=== PATIENT | female | born 2000 | race Caucasian/White ===

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

== ENCOUNTER 2022-02-13 13:39 | Outpatient (REF) | payer MEDICAID, SELFPAY | END 2022-02-13 13:40 | disposition home or self-care (01) | LOC: HO.MDS 13:39 | PROVIDERS: PCP Nurse Practitioner; Visit Provider Internal Medicine | DX: D50.9 Iron deficiency anemia, unspecified (principal) | CPT/HCPCS: 96365; J1756 ==

== ENCOUNTER 2022-02-20 13:15 | Outpatient (REF) | payer MEDICAID, SELFPAY | END 2022-02-20 13:16 | disposition home or self-care (01) | LOC: HO.MDS 13:15 | PROVIDERS: Visit Provider Internal Medicine | DX: D50.9 Iron deficiency anemia, unspecified (principal) | CPT/HCPCS: 96365; J1756 ==

== ENCOUNTER 2022-02-28 13:56 | Outpatient (REF) | payer MEDICAID, SELFPAY | END 2022-02-28 13:57 | disposition home or self-care (01) | LOC: HO.MDS 13:56 | PROVIDERS: Visit Provider Internal Medicine | DX: D50.9 Iron deficiency anemia, unspecified (principal) | CPT/HCPCS: 96365; J1756 ==

== ENCOUNTER 2022-03-07 12:39 | Outpatient (REF) | payer MEDICAID, SELFPAY | END 2022-03-07 12:40 | disposition home or self-care (01) | LOC: HO.MDS 12:39 | PROVIDERS: Visit Provider Internal Medicine | DX: D50.9 Iron deficiency anemia, unspecified (principal) | CPT/HCPCS: 96365; J1756 ==

== ENCOUNTER 2022-10-03 13:53 | Outpatient (REF) | payer MEDICAID, SELFPAY | END 2022-10-03 13:54 | disposition home or self-care (01) | LOC: HO.MDS 13:53 | PROVIDERS: PCP Nurse Practitioner; Visit Provider Internal Medicine | DX: D50.9 Iron deficiency anemia, unspecified (principal) | CPT/HCPCS: 96365; J1756 ==

== ENCOUNTER 2022-10-10 14:19 | Outpatient (REF) | payer MEDICAID, SELFPAY | END 2022-10-10 14:20 | disposition home or self-care (01) | LOC: HO.MDS 14:19 | PROVIDERS: Visit Provider Internal Medicine | DX: D50.9 Iron deficiency anemia, unspecified (principal) | CPT/HCPCS: 96365; J1756 ==

== ENCOUNTER 2022-10-17 12:36 | Outpatient (REF) | payer MEDICAID, SELFPAY | END 2022-10-17 12:37 | disposition home or self-care (01) | LOC: HO.MDS 12:36 | PROVIDERS: Visit Provider Internal Medicine | DX: D50.9 Iron deficiency anemia, unspecified (principal) | CPT/HCPCS: 96365; J1756 ==

== ENCOUNTER 2022-10-22 12:42 | Outpatient (REF) | payer MEDICAID, SELFPAY | END 2022-10-22 12:43 | disposition home or self-care (01) | LOC: HO.MDS 12:42 | PROVIDERS: Visit Provider Internal Medicine | DX: D50.9 Iron deficiency anemia, unspecified (principal) | CPT/HCPCS: 96365; J1756 ==

== ENCOUNTER 2022-10-30 12:46 | Outpatient (REF) | payer MEDICAID, SELFPAY | END 2022-10-30 12:47 | disposition home or self-care (01) | LOC: HO.MDS 12:46 | PROVIDERS: Visit Provider Internal Medicine | DX: D50.9 Iron deficiency anemia, unspecified (principal) | CPT/HCPCS: 96365; J1756 ==

== ENCOUNTER 2023-03-20 12:19 | Emergency (ER) | payer OTHER, MEDICAID, SELFPAY ==
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
[2023-03-20 12:34] VITALS: BP 155/85; PULSE 78; O2SAT 98
[2023-03-20 12:35] VITALS: BP 148/85; PULSE 87; RESP 20; TEMP 37.2; O2SAT 98; BMI 56.6
--- OUTSIDE RECORDS SUMMARY | 2023-03-20 12:48 | XMS_ITS | Continuity of Care Document ---
Author Name Unknown Organization [facility] ter Address [address] [place] [id number]- Care Team Providers Care Border Police Name Role Phone Arian MENDEZ, Mayank Fuller Primary Care Physician [place] [facility] [place] - 12/23/[address] [address]- [facility] Attending Physician: Katelynn Smith MD Admitting Physician: Katelynn Smith MD Allergies, Adverse Reactions, Alerts Substance Reaction Severity Status NKA Active Medications Cholecalciferol By Mouth, 0 Refills, Maintenance, 10/15/14 12:08:14 Start Date: 10/15/14 Status: Ordered Flovent 110 mcg Inhaler HFA 110 mcg, Inhalation, Maintenance, 04/19/14 8:30:26 Start Date: 04/19/14 Status: Ordered metFORMIN 750 mg oral tablet, extended release 2 tablet = 1,500 mg, By Mouth, Daily, # 60 tablet, 11 Refills, Maintenance, 01/26/19 9:48:22 EDT, ER Tablet Start Date: 01/26/19 Stop Date: 01/21/20 Status: Ordered Problem List Condition Effective Dates Status Health Status Inform ant Asthma(Confirmed) Active Obesity(Confirmed) Active Social History Social History Type Response Smoking Status Never smoker; Tobacc o user in household: No entered on: 05/03/15 Sex
--- OUTSIDE RECORDS SUMMARY | 2023-03-20 12:48 | XMS_ITS | Continuity of Care Document ---
Author Name Unknown Organization [facility] ter Address [address] [place] [id number]- Care Team Providers Care Clinical Informatics Strategist Name Role Phone Arian MENDEZ, Mayank Fuller Primary Care Physician Encounter [facility] [place] Date(s): 07/24/19 - 07/24/[address] [address]- [facility] Attending Physician: Katelynn Smith MD Allergies, Adverse Reactions, [...]
--- OUTSIDE RECORDS SUMMARY | 2023-03-20 12:48 | XMS_ITS | Continuity of Care Document ---
Author Name Unknown Organization [facility] ter Address [address] [place] [id number]- Care Team Providers Care Wax Pattern Repairer Name Role Phone Arian MENDEZ, Mayank Fuller Primary Care Physician [place] [facility] [place] - 12/23/[address] [address]- [facility] Attending Physician: Katelynn Smith MD Allergies, Adverse [...]
--- OUTSIDE RECORDS SUMMARY | 2023-03-20 12:48 | XMS_ITS | Continuity of Care Document ---
Author Name Unknown Organization [facility] ter Address [address] [place] [id number]- Care Team Providers Care Bolt Machine Operator Name Role Phone Jules GEORGES, Josiane Beltran Primary Care Physician Encounter [facility] Date(s): 01/23/22 - 01/23/[address] [address] Discharge Disposition: A-D/C Home Attending Physician: Katelynn Smith MD Admitting Physician: Katelynn Smith MD Referring Physician: Katelynn Smith MD Allergies, Adverse Reactions, Alerts Substance Reaction Severity Status Kiwi tongue swelling Active Medications Cholecalciferol By Mouth, 0 Refills, Maintenance, 10/15/14 12:08:14 Start Date: 10/15/14 Status: Ordered ferrous sulfate 325 mg oral tablet 1 tablet = 325 mg, By Mouth, 3 times a day, # 270 tablet, 0 Refills, Maintenance, 01/22/22 11:40:00EDT, Tablet, Partial fill upon patient request if the prescription is for a schedule II opioid drug. Start Date: 01/22/22 Status: Ordered OxyCODONE IR Tablet 5 mg, Tablet, By Mouth, Every 4 hours, in PACU ONLY, if patient can tolerate PO, PRN for Pain , Mild, Routine, 01/23/22 14:04:00 EDT Start Date: 01/23/22 Stop Date: 01/23/22 Status: Discontinued Problem List Condition Effective Dates Status Health Status Inform ant Asthma(Confirmed) Active Obesity(Confirmed) Active Severe obesity(Confirmed) Active Vital Signs Most recent to oldest [Reference Range]: 1 2 3 Height 155 cm (01/23/22 7:51 AM) 155 cm (01/22/22 11:27 AM) Weight 119.9 kg (01/23/22 7:51 AM) 115.90 kg (01/22/22 11:27 AM) Oxygen Saturation [94-100 %] 99 % (01/23/22 1:45 PM) 99 % (01/23/22 1:30 PM) 100 % (01/23/22 1:15 PM) Pulse Rate [55-90 bpm] 85 bpm (01/23/22 7:51 AM) Body Mass Index [18.5-24.99] 49.91 *>HHI* (01/23/22 7:51 AM) 48.24 *>HHI* (01/22/22 11:27 AM) Blood Pressure [90-138/55-84 mm Hg] 117/49mm Hg (01/23/22 1:45 PM) 115/49mm Hg (01/23/22 1:30 PM) 114/64mm Hg (01/23/22 1:15 PM) Respiratory Rate [16-30 br/min] 18 br/min (01/23/22 1:45 PM) 18 br/min (01/23/22 1:42 PM) 15 br/min *L* (01/23/22 1:30 PM) Temperature [96.8-100.4 DegF] 97 DegF (01/23/22 1:30 PM) 97.5 DegF (01/23/22 12:45 PM) 97.6 DegF (01/23/22 7:51 AM) Liters per Minute 5 L/min (01/23/22 12:45 PM) Mode of Delivery (Oxygen) Room air (01/23/22 1:30 PM) Blow by (01/23/22 1:15 PM) Simple face mask (01/23/22 12:45 PM) Blood pressure sites Arm, right (01/23/22 12:45 PM) Arm, left (01/23/22 7:51 AM) Temperature Route Temporal (01/23/22 1:30 PM) Temporal (01/23/22 12:45 PM) Temporal (01/23/22 7:51 AM) Dry Weight 119.9 kg (01/23/22 7:51 AM) Weight Obtained Via Standing scale (01/23/22 7:51 AM) Dry Weight Obtained Via Standing scale (01/23/22 7:51 AM) Social History Social History Type Response Smoking Status Never smoker; Tobacc o user in household: No entered on: 05/03/15 Sex
[2023-03-20] MEDS: Cyclobenzaprine HCl 5 MG TABLET PO (12:52)
== END 2023-03-20 12:57 | disposition home or self-care (01) ==
PROVIDERS: Emergency Provider Emergency Medicine
DX: S19.9XXA Unspecified injury of neck, initial encounter (principal); M54.50 Low back pain, unspecified; R51.9 Headache, unspecified; V43.52XA Car driver injured in collision with other type car in traffic accident, initial encounter; Y93.9 Activity, unspecified; Y92.410 Unspecified street and highway as the place of occurrence of the external cause; Y99.9 Unspecified external cause status
CPT/HCPCS: 99283

== ENCOUNTER 2023-10-24 18:36 | Outpatient (REF) | payer OTHER, MEDICAID, SELFPAY | END 2023-10-24 18:37 | disposition home or self-care (01) | LOC: HO.HHCLNP 18:36 | PROVIDERS: Visit Provider Advanced Practice Midwife | DX: Z12.4 Encounter for screening for malignant neoplasm of cervix (principal) | CPT/HCPCS: 88142 ==

== ENCOUNTER 2023-11-26 11:36 | Outpatient (REF) | payer OTHER, MEDICAID, SELFPAY ==
[2023-11-26 13:40] LABS: Hematocrit 34.6 % (37.0-47.0); Hemoglobin 10.7 g/dl (12.0-16.0); Mean Corpuscular HGB Conc 30.9 g/dl (31.0-35.0); Mean Corpuscular Hemoglobin 24.2 pg (27.0-33.0); Mean Corpuscular Volume 78.3 fL (80.0-98.0); Mean Platelet Volume 9.9 fL (9.4-12.3); Platelet Count 389 X10*3/uL (160-400); Red Blood Count 4.42 X10*6/uL (4.20-5.50); White Blood Count 7.6 X10*3/uL (4.8-10.8)
[2023-11-26 13:54] LABS: Alanine Aminotransferase 12 U/L (0-31); Albumin Level 3.7 g/dL (3.5-5.0); Alkaline Phosphatase 91 U/L (39-117); Anion Gap 15 (12-20); Aspartate Amino Transferase 16 U/L (5-31); Bilirubin Total 0.4 mg/dL (0.0-1.0); Blood Urea Nitrogen 9 mg/dL (9-16); Calcium 9.6 mg/dL (8.4-10.2); Carbon Dioxide 23 mmol/L (22-29); Chloride 107 mmol/L (96-108); Cholesterol 116 mg/dL (<200); Estimated Glomerular Filt Rate > 60; Glucose Random 97 mg/dL (60-115); HDL Cholesterol 35 mg/dL (>40); Iron 79 mcg/dL (30-160); LDL Cholesterol Calculated 69 mg/dL (<100); Percent Iron Saturation 29 % (15-50); Potassium 3.8 mmol/L (3.3-5.1); Sodium 141 mmol/L (135-145); Total Iron Binding Capacity 269 mcg/dL (228-428); Total Protein 7.2 g/dL (6.5-8.0); Triglycerides 61 mg/dL (<150); Unsaturated Iron Binding 190 ug/dL
[2023-11-26 14:04] LABS: Estimated Average Glucose 111 mg/dL; Hemoglobin A1c % 5.5 % (<6.0)
[2023-11-26 14:13] LABS: Ferritin 70 ng/mL (10-122); TSH reflex Free T4 < 0.01 uIU/mL (0.32-4.0); Vitamin D 25-OH Total 17.5 ng/mL (>30)
[2023-11-26 15:03] LABS: Free T4 (Free Thyroxine) 1.78 ng/dL (0.71-1.85)
[2023-11-26 16:03] LABS: CT PCR NOT DETECTED (Not Detect.); NG PCR NOT DETECTED (Not Detect.)
[2023-11-27 03:24] LABS: Syphilis Screen Nonreactive (Nonreactive)
[2023-11-27 04:04] LABS: HBS Num1 1.69 mIU/mL (0-7.99); HBc Num1 0.08 S/CO (0.00-0.79); HBsAGNum1 0.32 S/CO (0.00-0.99); HIV AB/AG Nonreactive (Nonreactive); HIV Num 1 0.06 S/CO (0.00-0.99); Hepatitis B Core Antibody Nonreactive (Nonreactive); Hepatitis B Surface Antigen Negative (Negative); ~HepC Num1 0.08 S/CO (0.00-0.79); ~Hepatitis B Surface Antibody NONREACTIVE (Nonreactive); ~Hepatitis C Antibody Nonreactive (Nonreactive)
[2023-11-27 16:12] LABS: Folate 7.2 ng/mL (> or = 4.0); Vitamin B12 343 pg/mL (200-900)
[2023-11-29 13:13] LABS: Hematocrit 34.7 % (35.0-45.0); Hemoglobin 10.7 g/dL (11.7-15.5); MCH 24.4 pg (27.0-33.0); MCV 79.2 fL (80.0-100.0); RBC 4.38 Million/uL (3.80-5.10)
== END 2023-11-26 11:37 | disposition home or self-care (01) ==
LOC: HO.HHCL 11:36
PROVIDERS: Visit Provider Student in an Organized Health Care Education/Training Program
DX: Z00.00 Encounter for general adult medical examination without abnormal findings (principal); Z13.6 Encounter for screening for cardiovascular disorders; Z11.4 Encounter for screening for human immunodeficiency virus [HIV]; D50.9 Iron deficiency anemia, unspecified
CPT/HCPCS: 0353U; 36415; 80053; 80061; 82306; 82607; 82728; 82746; 83020; 83036; 83540; 84439; 84443; 85014; 85018; 85027; 85041; 86704; 86706; 86780; 86803; 87340; 87389

== ENCOUNTER 2024-01-28 14:51 | Emergency (ER) | payer OTHER, SELFPAY ==
--- NOTE | ~2024-01-28 | US_ITS ---
EXAMINATION: US ABDOMEN LIMITED CLINICAL INFORMATION: Right upper back pain. Worse after eating. COMPARISON: Ultrasound abdomen May 08, 2019 TECHNIQUE: Real-time imaging of the right upper quadrant abdominal viscera.: Doppler exam used. FINDINGS: PANCREAS: Normal. LIVER: Normal. The liver is normal in size. The liver contour is normal. Parenchymal echogenicity is normal. No focal hepatic lesion. There is no intrahepatic biliary duct dilatation seen. GALLBLADDER: Numerous gallstones in the gallbladder. Gallbladder is contracted. No gallbladder wall thickening or pericholecystic fluid. Negative ultrasound Juares's sign. COMMON BILE DUCT: Normal in caliber measuring 0.3 cm in diameter. RIGHT KIDNEY: Normal. No hydronephrosis. No renal calculi or focal parenchymal lesions. The kidney measures 12.7 cm in maximum dimension. FREE FLUID: None. US/US abdomen limited IMPRESSION: Cholelithiasis. No acute change of gallbladder wall. No bile duct dilatation.
--- NOTE | ~2024-01-28 | XR_ITS ---
EXAMINATION: XR THORACOLUMBAR SPINE CLINICAL INFORMATION: Atraumatic back pain COMPARISON: Thoracic spine x-rays of 10/12/2013 TECHNIQUE: AP and lateral views of the thoracic spine as well as swimmers view were obtained. FINDINGS: Vertebral alignment is maintained. Minimal anterior wedge compression at T11-T12 is a stable finding and likely chronic stress related. Minimal anterior endplate hypertrophic spurring is noted in the lower thoracic spine. Intervertebral disc spaces are preserved. No evidence of suspicious lytic or blastic osseous lesions. Paraspinous soft tissues are unremarkable. Postsurgical changes are noted in the left upper abdominal quadrant likely of steal gastrectomy, recommend correlation with surgical history. XR/XR thoracic spine 2V IMPRESSION: Mild degenerative changes in the lower thoracic spine. No evidence of acute compression fracture or suspicious osseous lesion.
[2024-01-28 15:21] VITALS: BP 155/87; PULSE 100; RESP 18; TEMP 36.3; O2SAT 99; BMI 50.1
--- NOTE | 2024-01-28 15:23 | ED_ITS ---
HPI - Back Pain/Injury General Chief Complaint: Back Pain/Injury Stated Complaint: Upper back pain Time Seen by Provider: 01/28/24 16:24 Source: patient Mode of arrival: ambulatory Limitations: no limitations History of Present Illness ED Provider: cheyenne DOUGHERTY Narrative: Patient is a 23-year-old female with history of anemia, asthma, HTN, NIDDM, sleep apnea, sleeve gastrectomy, followed by bariatric surgery presenting to the emergency department with complaint of left thoracic back pain which worsened after eating lunch today. States the pain has been present for several days but seemed to worsen after eating lunch with her co-workers today. Denies abdominal pain, nausea, vomiting, diarrhea or constipation. Reports history of chronic upper back pain for which she has previously been prescribed muscle relaxers, topical lidocaine patches but states she is not currently using these medications. States she was referred to PT but has not gone yet. MD elicited complaint: back pain Pertinent past history: prior back pain Onset (ago): day(s) Timing: progressively worsening Severity: moderate Similar Symptoms Previously: Yes Quality: aching and spasming Location: left upper back Radiation: none Exacerbating factors: movement and other (palpation) Related Data Home Medications ?Medication ?Instructions ?Recorded ?Confirmed albuterol sulfate 90 mcg/actuation 1 inh inhalation DIRECTED PRN 08/26/20 03/20/22 aerosol inhaler (Ventolin HFA) Wheezing Miralax 17 g PO DIRECTED 12/12/21 03/20/22 Nexplanon 68 mg IM control 12/12/21 naproxen 250 mg PO Q4-8H pain 12/12/21 03/20/22 omeprazole 20 mg PO DAILY gerd 12/12/21 03/20/22 cholecalciferol (vitamin D3) 50 1 tab PO DAILY 12/13/21 03/20/22 mcg (2,000 unit) tablet ferrous sulfate 325 mg (65 mg 1 tab PO Q OTHER DAY 12/13/21 03/20/22 iron) tablet (FeroSul) Previous Rx's ?Medication ?Instructions ?Recorded cyclobenzaprine 5 mg tablet 5 mg PO TID PRN muscle spasm 7 03/20/23 days #21 tabs cyclobenzaprine 5 mg tablet 5 mg PO TID PRN muscle spasm #10 01/28/24 tabs lidocaine 5 % topical patch 1 patch topical DAILY #15 ea 01/28/24 Allergies Allergy/AdvReac Type Severity Reaction Status Date / Time kiwi Allergy Intermediate inflammation Verified 01/28/24 15:22 of taste buds Review of Systems 2 Review of Systems: As per HPI. Yes all other systems are reviewed and are negative Constitutional: Constitutional: Reports as per HPI [facility] Past Medical History Medical History Asthma Non-insulin dependent diabetes mellitus Lower extremity edema Back pain Steatosis, liver Hypertension Pre-diabetes Sleep apnea Asthma Anemia Abnormal electrocardiogram [ECG] [EKG] Surgical History Gastric bypass status for obesity History of sleeve gastrectomy No history of previous surgery Morbid obesity Family History Family History Father High blood pressure Anemia Hx of diabetes mellitus Gout Arthritis Mother High blood pressure Hx of diabetes mellitus Arthritis Social History Social History Household Members: Family Housing: Apartment Are you a primary long term acute care registered nurse to a significant other at home: Yes Do you presently have visiting nurse or other home services: No Comment: sleeping Patient Tobacco Use Status: Never used Tobacco Advance Directives: No Advance Directives Information Provided: No Do you have a plan to hurt others: No Plan service: No Current occupational status: employed Physical Exam 2 Vital Signs: Vital Signs: Last Vital Signs Temp 97.6 F 01/28/24 16:24 Pulse 98 01/28/24 16:24 Resp 20 01/28/24 16:24 BP 157/85 H 01/28/24 16:24 Pulse Ox 99 01/28/24 16:24 O2 Del Method Room Air 01/28/24 16:24 BMI result Body Mass Index 50.1 Vital signs have been reviewed and appear to be correct. Blood pressure elevated. Heart rate normal. Respiratory rate normal. Temperature normal. Oxygen saturation normal. Const: General: cooperative and no acute distress O rientation/consciousness: oriented to person, oriented to place, oriented to time and patient oriented x3 Limitations: no limitations HEENT: Head: Yes normocephalic and Yes atraumatic Ears: external ears normal General nose exam: Normal external nose present Face and sinus: Yes face symmetric Mouth: oropharynx normal and moist mucous membranes T hroat: Yes uvula midline Eyes: Pupils: Equal, round and reactive pupils present Neck: Neck: Yes normal visual inspection and Yes supple Resp: Effort & Inspection: normal respiratory effort and able to speak in complete sentences Auscultation: clear to auscultation bilaterally Cardio: Rate: regular rate Rhythm: regular rhythm Heart sounds: S1 normal heart sound present and S2 normal heart sound present GI: Palpation (GI): Soft to palpation and nontender Auscultation: n ormoactive bowel sounds : General: Yes no CVA tenderness Back/Spine/Pelvis: Back: no CVA tenderness Thoracic/Lumbar Spine: thoracic and lumbar spine normal to inspection, thoraco-lumbar ROM normal, pain with thoraco-lumbar ROM, paraspinal muscle tenderness on the left in the upper thoracic, No thoracic spinal tenderness and No lumbar spinal tenderness Skin: General skin exam: elasticity normal and turgor normal Neuro: General: oriented to person, oriented to place, oriented to time, patient oriented x3, moves all extremities, no focal motor deficits and CN's II- XI intact bilaterally Cranial nerves: Yes Equal, round and reactive pupils present Cognition (Neuro): normal cognition Extrem: General: Yes full ROM, Yes no pedal edema and Yes no calf tenderness Psych: Mental Status: mental status grossly normal Affect: normal affect Thought process: Normal thought process present Course Course Course Narrative: This is a Rapid Medical Examination (RME) performed by Gabriela Kim PA-C in triage. Full HPI, ROS, assessment and treatment plan per primary provider in the Main ED. 23 yo female hx of asthma, DM here for eval of mid-upper back pain worse after eating. exacerbated last night after eating tacos. denies abdominal pain, NV. patient reports hx of upper back pain. previously completed PT for this with improvement. + No midline spinous tenderness or step off deformity. No paraspinal muscle tenderness. obese abd soft, ND/NT. Plan: labs, US, xr Medical Decision Making Medical Decision Making MDM Narrative: Patient is a 23-year-old female with history of anemia, asthma, HTN, NIDDM, sleep apnea, sleeve gastrectomy, followed by bariatric surgery presenting to the emergency department with complaint of left thoracic back pain which worsened after eating lunch today. On exam patient is awake, A+Ox3, VS WNL, afebrile, normal neurological exam without focal deficits, physical exam findings as above. Given reported symptoms and physical exam findings, initial differential includes muscle strain/spasm, trapped gas, GERD. Labs notable for chronic anemia otherwise unremarkable. Thoracic x-ray notable for mild degenerative changes, no acute fracture or suspicious lesions. Ultrasound notable for cholelithiasis without evidence of cholecystitis. My interpretation is in agreement with the radiologist's interpretation. No abdominal tenderness on physical exam and pain is reproducible with palpation, feel patient's symptoms are likely an acute exacerbation of chronic upper back pain. Discussed with patient that gas after eating may also be contributing to her pain and recommend that she try [id number] simethicone to see if this changes her symptoms. Will send prescriptions for cyclobenzaprine and topical lidocaine patches. Advised her to schedule her physical therapy which has been ordered. Return precautions discussed at bedside. Follow-up with PCP. Patient verbalized understanding of and agreement with plan. Differential Diagnosis Differential Diagnoses: The differential diagnosis associated with the presentation includes As per [facility] Admission/Observation Consideration of admission/observation: Escalation of care including admission/observation considered Patient would have been admitted to the hospital had their work up had any findings where hospital admission was appropriate and their clinical presentation warranted hospital admission. Lab Data [facility] Lab Attestation statement: I reviewed the patient's lab results. as per [facility] 01/28/24 17:13 01/28/24 17:13 Labs: Lab Results 01/28/24 Range/Units 17:13 WBC 9.9 (4.8-10.8) X10*3/uL RBC 3.98 L (4.20-5.50) X10*6/uL Hgb 9.9 L (12.0-16.0) g/dl Hct 30.7 L (37.0-47.0) % MCV 77.1 L (80.0-98.0) fL MCH 24.9 L (27.0-33.0) pg MCHC 32.2 (31.0-35.0) g/dl RDW 13.8 (11.0-16.0) % Plt Count 351 (160-400) X10*3/uL MPV 9.1 L (9.4-12.3) fL Immature Gran % (Auto) 0.2 (0.0-0.4) % Neut % (Auto) 68.0 (45-73) % Lymph % (Auto) 23.8 (20-40) % Davie % (Auto) 6.4 (2-11) % Eos % (Auto) 1.4 (0-4) % Baso % (Auto) 0.2 (0-2) % Lymph # (Auto) 2.4 (1.2-4.9) X10*3/uL Davie # (Auto) 0.6 (0.1-1.2) X10*3/uL Eos # (Auto) 0.1 (0.0-0.4) X10*3/uL Baso # (Auto) 0.0 (0.0-0.2) X10*3/uL Abs Immat Gran (auto) 0.02 (0.00-0.03) X10*3/uL Absolute Neuts (auto) 6.7 (2.0-8.3) x10*3/uL Absolute Nucleated RBC 0.000 (0.0-0.012) X10*3/uL Nucleated RBC % (auto) 0.0 (0.0-0.2) /100WBC Sodium 142 (135-145) mmol/L Potassium 4.3 (3.3-5.1) mmol/L Chloride 109 H (96-108) mmol/L Carbon Dioxide 22 (22-29) mmol/L Anion Gap 15 (12-20) BUN 9 (9-16) mg/dL Creatinine 0.56 (0.5-1.4) mg/dL Estim Creat Clear Calc 191.0 Estimated GFR > 60 Random Glucose 99 (60-115) mg/dL Calcium 9.0 D (8.4-10.2) mg/dL Magnesium 1.8 (1.6-2.6) mg/dL Total Bilirubin 0.1 (0.0-1.0) mg/dL AST 11 (5-31) U/L ALT 7 (0-31) U/L Alkaline Phosphatase 87 (39-117) U/L Total Protein 6.7 (6.5-8.0) g/dL Albumin 3.5 (3.5-5.0) g/dL Lipase 13 (8-78) U/L Independent Interpretation I performed an independent interpretation of an: Plain X-Ray and Ultrasound Interpretation: Thoracic x-ray notable for mild degenerative changes, no acute fracture or suspicious lesions. Ultrasound notable for cholelithiasis without evidence of cholecystitis. Radiology Impression Discussion of test interpretation with radiology: I have reviewed the radiologist's reading. Radiologist Impression: US/US abdomen limited IMPRESSION: Cholelithiasis. No acute change of gallbladder wall. No bile duct dilatation. XR/XR thoracic spine 2V IMPRESSION: Mild degenerative changes in the lower thoracic spine. No evidence of acute compression fracture or suspicious osseous lesion. External Record Review External record reviewed: Inpatient record, Office record and Outpatient record Prescription Management I considered prescription management with: Pain Medication and Other Discharge Plan Discharge Clinical Impression: Strain of thoracic back region Patient Disposition: Home, Self-Care Instructions: Muscle Strain (DC), Thoracic Back Strain (ED) Additional Instructions: You were evaluated in the emergency department today for back pain. Your evaluation did not show signs of medical conditions requiring emergent intervention at this time. You have been prescribed a muscle relaxer which you may take every 8 hours as needed for spasms. You have been prescribed 5% topical lidocaine patches which you can wear for up to 12 hours in a 24 hour period. Do not apply heat directly over the patches. It is also possible that your pain is being worsened by trapped gas after eating. You can try over the counter simethicone to see if this decreases your pain after eating. Please schedule an appointment for follow-up with your primary care physician this week for further evaluation of your symptoms. Return to the emergency department if you experience worsening back pain, difficulty walking, fevers, numbness, tingling, incontinence, groin numbness or tingling, or any other concerning symptoms. Prescriptions: New cyclobenzaprine 5 mg tablet 5 mg PO TID PRN (Reason: muscle spasm) Qty: 10 0RF lidocaine 5 % adhesive patch,medicated 1 patch topical DAILY Qty: 15 0RF Rx Instructions: leave on most painful area for up to 12 hrs No Action albuterol sulfate [Ventolin HFA] 90 mcg/actuation Hfa Aerosol Inhaler 1 inh INHALATION DIRECTED PRN (Reason: Wheezing) Miralax 17 g PO DIRECTED Nexplanon 68 mg IM naproxen 250 mg PO Q4-8H omeprazole 20 mg PO DAILY ferrous sulfate [FeroSul] 325 mg (65 mg iron) tablet 1 tab PO Q OTHER DAY cholecalciferol (vitamin D3) 50 mcg (2,000 unit) tablet 1 tab PO DAILY cyclobenzaprine 5 mg tablet 5 mg PO TID PRN (Reason: muscle spasm) 7 Days Qty: 21 0RF Print Language: Italian
[2024-01-28 16:24] VITALS: BP 157/85; PULSE 98; RESP 20; TEMP 36.4; O2SAT 99
[2024-01-28 17:18] LABS: MANUAL DIFF FLAG NO
[2024-01-28 17:21] LABS: Basophils Percent Auto 0.2 % (0-2); Eosinophils Absolute Auto 0.1 X10*3/uL (0.0-0.4); Eosinophils Percent Auto 1.4 % (0-4); Hematocrit 30.7 % (37.0-47.0); Hemoglobin 9.9 g/dl (12.0-16.0); Imm Gran Abs Auto 0.02 X10*3/uL (0.00-0.03); Imm Gran Pct Auto 0.2 % (0.0-0.4); Lymphocytes Absolute Auto 2.4 X10*3/uL (1.2-4.9); Lymphocytes Percent Auto 23.8 % (20-40); Mean Corpuscular HGB Conc 32.2 g/dl (31.0-35.0); Mean Corpuscular Hemoglobin 24.9 pg (27.0-33.0); Mean Corpuscular Volume 77.1 fL (80.0-98.0); Mean Platelet Volume 9.1 fL (9.4-12.3); Monocytes Absolute Auto 0.6 X10*3/uL (0.1-1.2); Monocytes Percent Auto 6.4 % (2-11); Neutrophils Absolute Auto 6.7 x10*3/uL (2.0-8.3); Platelet Count 351 X10*3/uL (160-400); Red Blood Count 3.98 X10*6/uL (4.20-5.50); Red Cell Distribution Width 13.8 % (11.0-16.0); White Blood Count 9.9 X10*3/uL (4.8-10.8)
[2024-01-28 17:35] LABS: Alanine Aminotransferase 7 U/L (0-31); Albumin Level 3.5 g/dL (3.5-5.0); Alkaline Phosphatase 87 U/L (39-117); Anion Gap 15 (12-20); Aspartate Amino Transferase 11 U/L (5-31); Bilirubin Total 0.1 mg/dL (0.0-1.0); Blood Urea Nitrogen 9 mg/dL (9-16); Carbon Dioxide 22 mmol/L (22-29); Chloride 109 mmol/L (96-108); Estimated Glomerular Filt Rate > 60; Glucose Random 99 mg/dL (60-115); Lipase 13 U/L (8-78); Magnesium 1.8 mg/dL (1.6-2.6); Potassium 4.3 mmol/L (3.3-5.1); Sodium 142 mmol/L (135-145); Total Protein 6.7 g/dL (6.5-8.0)
[2024-01-28 18:22] VITALS: BP 113/66; PULSE 86; RESP 16; TEMP 36.6; O2SAT 100
[2024-01-28 18:33] VITALS: BP 113/66; PULSE 86; RESP 16; TEMP 36.6; O2SAT 100
== END 2024-01-28 18:33 | disposition home or self-care (01) ==
PROVIDERS: Physician Assistant Medical; Emergency Provider Internal Medicine; PCP Student in an Organized Health Care Education/Training Program
DX: S29.012A Strain of muscle and tendon of back wall of thorax, initial encounter (principal); X58.XXXA Exposure to other specified factors, initial encounter; Y93.9 Activity, unspecified; Y92.9 Unspecified place or not applicable; Y99.9 Unspecified external cause status; M54.6 Pain in thoracic spine; I10 Essential (primary) hypertension; E11.9 Type 2 diabetes mellitus without complications; J45.909 Unspecified asthma, uncomplicated; D64.9 Anemia, unspecified; Z79.899 Other long term (current) drug therapy
CPT/HCPCS: 36415; 72070; 76705; 80053; 83690; 83735; 85025; 99283; 99284